=== PATIENT | male | born 1970 | race Caucasian/White ===

== ENCOUNTER 2018-09-18 21:07 | Inpatient (IN) | payer MEDICARE, OTHER ==
[~2018-09-18] VITALS: Ht 195.6 cm; Wt 189.9 kg
[2018-09-18 21:54] LABS: Basophils # (auto) 0 uL; Basophils % (auto) 0.6 % (0.0-2.0); Eosinophils # (auto) 0.1 uL; Hemoglobin 14.6 g/dL (13.5-17.5); Lymphocytes # (auto) 2.4 uL; Lymphocytes % (auto) 36.4 % (10.0-50.0); Mean Corpuscular Hemoglobin 29.5 pg (28.0-32.0); Mean Corpuscular Hgb Conc. 33.2 g/dL (32.0-36.0); Mean Corpuscular Volume 88.9 fL (80.0-100.0); Monocytes # (auto) 0.5 uL; Monocytes % (auto) 7.8 % (0.0-12.0); Neutrophils # (auto) 3.5 uL; Neutrophils % (auto) 54.2 % (37.0-80.0); Nucleated Red Blood Cells % 0.1 %; Platelet Count (auto) 251 10^3/uL (140-450); Red Blood Cells 4.95 10^6/uL (4.5-5.90); Red Cell Distribution Width 14.2 % (11.8-14.3); White Blood Cell 6.5 10^3/uL (4.4-10.8)
[2018-09-18 22:15] LABS: Albumin 3.7 g/dL (3.4-5.0); BUN/Creatinine Ratio 10.2; Calcium 8.8 mg/dL (8.5-10.1)
[2018-09-18 22:18] LABS: Bilirubin, Total 0.4 mg/dL (0.2-1.0); Total Protein 6.9 g/dL (6.4-8.2)
[2018-09-18 22:45] LABS: Urine Bacteria NONE SEEN /hpf (None Seen); Urine Blood Negative /uL (Negative); Urine Specific Gravity 1.005 (1.001-1.035); Urine WBC <1 /hpf (0 - 3)
[2018-09-19] MEDS ORDERED: MORPHINE SULFATE 4 MG/ML SYR/VIAL IV ONE
[2018-09-19] MEDS ORDERED: ONDANSETRON HCL 4 MG/2 ML VIAL IV ONE
[2018-09-19] MEDS ORDERED: cefTRIAXone 1GM/50ML D5W 50 ML IV ONE
[2018-09-19] MEDS ORDERED: VANCOMYCIN 1GM/250ML 250 ML IV ONE
[2018-09-19] MEDS ORDERED: HYDROmorphone HCL 2 MG/ML VL IV ONE (03:15)
[2018-09-19] MEDS ORDERED: ONDANSETRON HCL 4 MG/2 ML VIAL IV PRN (03:45)
[2018-09-19] MEDS ORDERED: MORPHINE SULFATE 4 MG/ML SYR/VIAL IV PRN (03:45)
[2018-09-19] MEDS ORDERED: DEXTROSE (50%) 50ML SYRG IV PRN (03:45)
[2018-09-19] MEDS ORDERED: ACETAMINOPHEN 500 MG TAB PO PRN (03:45)
[2018-09-19] MEDS ORDERED: VANCOMYCIN PER PHARMACY 0 MG IV SCH (04:00)
[2018-09-19 05:33] LABS: Basophils # (auto) 0 uL; Basophils % (auto) 0.6 % (0.0-2.0); Eosinophils # (auto) 0.1 uL; Eosinophils % (auto) 1.9 % (0.0-7.0); Hematocrit 42.3 % (41.0-53.0); Hemoglobin 14.5 g/dL (13.5-17.5); Lymphocytes # (auto) 2.1 uL; Lymphocytes % (auto) 38.4 % (10.0-50.0); Mean Corpuscular Hemoglobin 30.2 pg (28.0-32.0); Mean Corpuscular Hgb Conc. 34.3 g/dL (32.0-36.0); Mean Corpuscular Volume 88.2 fL (80.0-100.0); Monocytes # (auto) 0.5 uL; Monocytes % (auto) 9.5 % (0.0-12.0); Neutrophils # (auto) 2.7 uL; Neutrophils % (auto) 49.6 % (37.0-80.0); Nucleated Red Blood Cells % 0.2 %; Platelet Count (auto) 224 10^3/uL (140-450); Red Blood Cells 4.79 10^6/uL (4.5-5.90); Red Cell Distribution Width 14.4 % (11.8-14.3); White Blood Cell 5.5 10^3/uL (4.4-10.8)
[2018-09-19 05:50] LABS: BUN/Creatinine Ratio 12.8; Calcium 8.7 mg/dL (8.5-10.1); Potassium 4.1 mmol/L (3.5-5.1)
[2018-09-19] MEDS: PIPERACILLIN-TAZOB 3.375GM 100 ML IV SCH ×3 (05:59→18:11)
[2018-09-19 06:00] VITALS: BP 124/87
[2018-09-19] MEDS: InsuLIN REG 1unit/0.01ml Soln (100units/ml) SC SCH ×4 (06:02→22:44)
[2018-09-19] MEDS: ACCU-CHEK COMFORT CURVE STRIP VI SCH ×4 (06:02→22:44)
[2018-09-19] MEDS: SODIUM CHLORIDE 0.9% 1,000 ML IV SCH ×2 (06:03→17:05)
[2018-09-19] MEDS: MORPHINE SULFATE 10 MG/ML INJ 1ML SDV IV PRN ×3 (07:05→15:19)
[2018-09-19 08:59] VITALS: BP 118/73
[2018-09-19] MEDS: VANCOMYCIN 1GM/250ML 250 ML IV SCH ×3 (09:04→22:09)
[2018-09-19 12:59] VITALS: BP 120/68
[2018-09-19 13:53] LABS: INR 0.98 (0.9-1.15); Partial Thromboplastin Time 28.4 sec (23.78-33.04); Prothrombin Time 10.5 sec (9.27-12.13)
[2018-09-19 17:03] VITALS: BP 107/63
[2018-09-19 18:36] LABS: INR 0.97 (0.9-1.15); Prothrombin Time 10.4 sec (9.27-12.13)
[2018-09-19] MEDS: HYDROmorphone HCL 2 MG/ML VL IV PRN ×2 (19:01→23:11)
[2018-09-19 19:09] LABS: Alcohol, Urine < 3.0 mg/dL (0-5); Amphetamine Screen, Urine NEGATIVE (NEGATIVE); Barbiturate Scree,Urine NEGATIVE (NEGATIVE); Benzodiazephine Screen, Urine NEGATIVE (NEGATIVE); Cannabinoid Screen, Urine NEGATIVE (NEGATIVE); Cocaine Screen, Urine NEGATIVE (NEGATIVE); Opiate Scree,Urine POSITIVE (NEGATIVE); Phencyclidine Screen, Urine NEGATIVE (NEGATIVE)
[2018-09-19 21:30] VITALS: BP 117/60
[2018-09-19] MEDS: clonazePAM 0.5 MG TAB PO SCH (22:05)
[2018-09-20] MEDS: PIPERACILLIN-TAZOB 3.375GM 100 ML IV SCH ×2 (00:07→05:31)
[2018-09-20 01:47] LABS: Basophils # (auto) 0 uL; Basophils % (auto) 0.9 % (0.0-2.0); Eosinophils # (auto) 0.1 uL; Eosinophils % (auto) 2.3 % (0.0-7.0); Hematocrit 41.5 % (41.0-53.0); Hemoglobin 13.8 g/dL (13.5-17.5); Lymphocytes # (auto) 1.2 uL; Mean Corpuscular Hemoglobin 29.1 pg (28.0-32.0); Mean Corpuscular Hgb Conc. 33.2 g/dL (32.0-36.0); Mean Corpuscular Volume 87.5 fL (80.0-100.0); Monocytes # (auto) 0.6 uL; Monocytes % (auto) 11.9 % (0.0-12.0); Neutrophils # (auto) 2.8 uL; Neutrophils % (auto) 58.9 % (37.0-80.0); Platelet Count (auto) 182 10^3/uL (140-450); Red Blood Cells 4.74 10^6/uL (4.5-5.90); Red Cell Distribution Width 14.5 % (11.8-14.3); White Blood Cell 4.7 10^3/uL (4.4-10.8)
[2018-09-20 02:06] LABS: BUN/Creatinine Ratio 11.9; Calcium 8.7 mg/dL (8.5-10.1); Magnesium 2.1 mg/dL (1.6-2.6); Potassium 4.3 mmol/L (3.5-5.1)
[2018-09-20] MEDS: VANCOMYCIN 1GM/250ML 250 ML IV SCH (03:00)
[2018-09-20] MEDS: HYDROmorphone HCL 2 MG/ML VL IV PRN ×6 (03:15→23:56)
[2018-09-20 05:00] VITALS: BP 119/78
[2018-09-20] MEDS: clonazePAM 0.5 MG TAB PO SCH ×3 (05:31→21:28)
[2018-09-20] MEDS: SODIUM CHLORIDE 0.9% 1,000 ML IV SCH (06:25)
[2018-09-20] MEDS: ACCU-CHEK COMFORT CURVE STRIP VI SCH ×4 (06:31→21:28)
[2018-09-20] MEDS: InsuLIN REG 1unit/0.01ml Soln (100units/ml) SC SCH ×4 (06:32→21:30)
[2018-09-20] MEDS ORDERED: fentaNYL CITRATE 100 MCG/2 ML VL ONE (08:46)
[2018-09-20] MEDS ORDERED: MIDAZOLAM HCL 1MG/1ML-2 ML VIAL ONE (08:46)
[2018-09-20 09:00] VITALS: BP 102/65
[2018-09-20] MEDS ORDERED: KETOROLAC TROMETH 30 MG/ML 1ML VIAL IV ONE (09:15)
[2018-09-20] MEDS ORDERED: ONDANSETRON HCL 4 MG/2 ML VIAL IV ONE (09:15)
[2018-09-20] MEDS ORDERED: ACCU-CHEK COMFORT CURVE STRIP VI ONE (09:15)
[2018-09-20] MEDS ORDERED: ePHEDrine SULFATE 50 MG/ML AMP IV PRN (09:15)
[2018-09-20] MEDS ORDERED: MORPHINE SULFATE 4 MG/ML SYR/VIAL IV PRN (09:15)
[2018-09-20] MEDS ORDERED: HYDROmorphone HCL 2 MG/ML VL IV PRN (09:15)
[2018-09-20] MEDS ORDERED: MIDAZOLAM HCL 1MG/1ML-2 ML VIAL IV PRN (09:15)
[2018-09-20] MEDS ORDERED: LABETALOL HCL 5 MG/ML 4ML SYRINGE IV PRN (09:15)
[2018-09-20] MEDS ORDERED: PROPOFOL 10 MG/ML 20 ML IV ONE (09:21)
[2018-09-20] MEDS ORDERED: MORPHINE SULFATE 4 MG/ML SYR/VIAL IV ONE (10:00)
[2018-09-20] MEDS ORDERED: VANCOMYCIN 1,500 MG in D5W 5% 250 ML IV SCH (12:00)
[2018-09-20 13:00] VITALS: BP 136/87
[2018-09-20] MEDS ORDERED: SULFAMETHOX W/TRIMETH(800/160MG) DS TAB PO ONE (13:30)
[2018-09-20] MEDS ORDERED: PIPERACILLIN-TAZOB 3.375GM 100 ML IV SCH (14:00)
[2018-09-20 14:52] VITALS: BP 105/62
[2018-09-20 17:00] VITALS: BP 102/77
[2018-09-20 22:00] VITALS: BP 107/58
[2018-09-21] MEDS: SODIUM CHLORIDE 0.9% 1,000 ML IV SCH ×3 (00:04→22:25)
[2018-09-21] MEDS: HYDROmorphone HCL 2 MG/ML VL IV PRN ×5 (04:11→22:11)
[2018-09-21] MEDS: clonazePAM 0.5 MG TAB PO SCH ×3 (05:31→21:15)
[2018-09-21 06:00] VITALS: BP 103/43
[2018-09-21] MEDS: ACCU-CHEK COMFORT CURVE STRIP VI SCH ×4 (06:01→21:15)
[2018-09-21] MEDS: InsuLIN REG 1unit/0.01ml Soln (100units/ml) SC SCH ×4 (06:02→21:24)
[2018-09-21 07:02] LABS: Basophils # (auto) 0 uL; Basophils % (auto) 0.6 % (0.0-2.0); Eosinophils # (auto) 0.1 uL; Eosinophils % (auto) 2.4 % (0.0-7.0); Hematocrit 42.5 % (41.0-53.0); Hemoglobin 14.1 g/dL (13.5-17.5); Lymphocytes # (auto) 1.1 uL; Lymphocytes % (auto) 26.3 % (10.0-50.0); Mean Corpuscular Hemoglobin 29.6 pg (28.0-32.0); Mean Corpuscular Hgb Conc. 33.2 g/dL (32.0-36.0); Mean Corpuscular Volume 89.2 fL (80.0-100.0); Monocytes # (auto) 0.5 uL; Monocytes % (auto) 12.3 % (0.0-12.0); Neutrophils # (auto) 2.5 uL; Neutrophils % (auto) 58.4 % (37.0-80.0); Nucleated Red Blood Cells % 0.1 %; Platelet Count (auto) 179 10^3/uL (140-450); Red Blood Cells 4.76 10^6/uL (4.5-5.90); Red Cell Distribution Width 14.2 % (11.8-14.3); White Blood Cell 4.2 10^3/uL (4.4-10.8)
[2018-09-21 07:14] LABS: Albumin 3.5 g/dL (3.4-5.0); Calcium 8.7 mg/dL (8.5-10.1); Potassium 4.1 mmol/L (3.5-5.1)
[2018-09-21 07:15] LABS: BUN/Creatinine Ratio 10.3; Bilirubin, Total 0.5 mg/dL (0.2-1.0)
[2018-09-21 07:16] LABS: Total Protein 6.9 g/dL (6.4-8.2)
[2018-09-21 08:25] VITALS: BP 105/62
[2018-09-21 12:30] VITALS: BP 121/66
[2018-09-21 17:15] VITALS: BP 98/59
[2018-09-21 22:00] VITALS: BP 111/69
[2018-09-22] MEDS: HYDROmorphone HCL 2 MG/ML VL IV PRN ×2 (01:54→06:04)
[2018-09-22 05:00] VITALS: BP 109/61
[2018-09-22] MEDS: clonazePAM 0.5 MG TAB PO SCH (06:06)
[2018-09-22] MEDS: ACCU-CHEK COMFORT CURVE STRIP VI SCH (06:08)
[2018-09-22] MEDS: InsuLIN REG 1unit/0.01ml Soln (100units/ml) SC SCH (06:09)
[2018-09-22 08:00] VITALS: BP 120/63
[2018-09-22 08:46] VITALS: BP 120/63
== END 2018-09-22 10:58 | disposition home health service (06) | DRG 854 ==
LOC: ER 21:07 → OVERFLOW 09-19 03:43 → WEST WING 09-19 05:40
PROVIDERS: ADMIT Nurse Practitioner Family; ATTEND Internal Medicine
PROC: 0KBJ0ZZ Excision of Left Thorax Muscle, Open Approach (ICD-10-PCS; principal; 2018-09-20 09:14)
DX: A41.9 Sepsis, unspecified organism (principal); Z68.42 Body mass index [BMI] 45.0-49.9, adult; L03.311 Cellulitis of abdominal wall; E66.01 Morbid (severe) obesity due to excess calories; S21.002A Unspecified open wound of left breast, initial encounter; X58.XXXA Exposure to other specified factors, initial encounter; Z79.4 Long term (current) use of insulin; Z83.3 Family history of diabetes mellitus; Z91.14 Patient's other noncompliance with medication regimen; Z71.3 Dietary counseling and surveillance; Y93.89 Activity, other specified; Y92.89 Other specified places as the place of occurrence of the external cause; Y99.8 Other external cause status; E11.65 Type 2 diabetes mellitus with hyperglycemia
CPT/HCPCS: 36415; 80048; 80053; 80202; 80307; 81001; 82962; 83036; 83735; 85025; 85610; 85730; 87040; 87070; 96365; 96368; 96375; G0378; J0696; J1815; J2250; J2405; J2543; J2704; J7060

== ENCOUNTER 2019-07-27 11:35 | Inpatient (IN) | payer OTHER ==
[~2019-07-27] VITALS: Ht 193 cm; Wt 191.4 kg
[2019-07-27 12:28] LABS: Basophils # (auto) 0.1 uL; Basophils % (auto) 0.8 % (0.0-2.0); Eosinophils # (auto) 0.1 uL; Eosinophils % (auto) 1.6 % (0.0-7.0); Hematocrit 40.6 % (41.0-53.0); Hemoglobin 13.6 g/dL (13.5-17.5); Lymphocytes # (auto) 1.8 uL; Lymphocytes % (auto) 25.1 % (10.0-50.0); Mean Corpuscular Hemoglobin 29.2 pg (28.0-32.0); Mean Corpuscular Hgb Conc. 33.5 g/dL (32.0-36.0); Mean Corpuscular Volume 87.2 fL (80.0-100.0); Monocytes # (auto) 0.8 uL; Monocytes % (auto) 11.1 % (0.0-12.0); Neutrophils # (auto) 4.4 uL; Neutrophils % (auto) 61.4 % (37.0-80.0); Nucleated Red Blood Cells % 0.1 %; Platelet Count (auto) 202 10^3/uL (140-450); Red Blood Cells 4.65 10^6/uL (4.5-5.90); Red Cell Distribution Width 15.1 % (11.8-14.3); White Blood Cell 7.2 10^3/uL (4.4-10.8)
[2019-07-27 12:39] LABS: INR < 0.93 (0.9-1.15); Partial Thromboplastin Time 25.9 sec (23.64-32.05)
[2019-07-27 12:49] LABS: Lactic Acid w/Reflex 2.6 mmol/L (0.4-2.0)
[2019-07-27 12:50] LABS: Albumin 3.5 g/dL (3.4-5.0); Calcium 8.6 mg/dL (8.5-10.1)
[2019-07-27 12:53] LABS: BUN/Creatinine Ratio 15.9; Bilirubin, Total 0.4 mg/dL (0.2-1.0); Total Protein 7.3 g/dL (6.4-8.2)
[2019-07-27] MEDS ORDERED: cefTRIAXone 1GM/50ML D5W 50 ML IV ONE (14:45)
[2019-07-27] MEDS ORDERED: LORazepam 2MG/ML-1ML VIAL IV ONE (15:15)
[2019-07-27] MEDS ORDERED: HYDROcodone-ACET 10/325MG TAB PO ONE (15:15)
[2019-07-27] MEDS ORDERED: IOHEXOL 300 MG/ML 100ML BOTTLE IJ ONE (18:08)
[2019-07-27] MEDS ORDERED: ACETAMINOPHEN 500 MG TAB PO PRN (19:30)
[2019-07-27] MEDS ORDERED: DEXTROSE (50%) 50ML SYRG IV PRN (19:30)
[2019-07-27] MEDS ORDERED: HYDROcodone-ACET 5/325MG TAB PO PRN (19:30)
[2019-07-27] MEDS ORDERED: MORPHINE SULF INJ 2 MG/ML SYRINGE 1ML IV PRN (19:30)
[2019-07-27] MEDS ORDERED: NITROGLYCERIN 0.4 MG SL TAB SL PRN (19:30)
[2019-07-27] MEDS ORDERED: LACTULOSE 20Gm/30ML SOLN PO PRN (19:30)
[2019-07-27] MEDS ORDERED: TEMAZEPAM 15 MG CAP PO PRN (19:30)
[2019-07-27] MEDS ORDERED: LEVOFLOXACIN 500MG 100 ML IV ONE (19:30)
[2019-07-27] MEDS: SODIUM CHLORIDE 0.9% 1,000 ML IV SCH (20:16)
[2019-07-27] MEDS: MORPHINE SULFATE 4 MG/ML SYR/VIAL IV PRN (20:17)
[2019-07-27] MEDS: ACCU-CHEK COMFORT CURVE STRIP VI SCH (20:23)
[2019-07-27] MEDS: InsuLIN REG 1unit/0.01ml Soln (100units/ml) SC SCH (20:23)
[2019-07-27] MEDS: PROMETHAZINE HCL 25 MG/ML 1ML IV PRN (20:59)
[2019-07-27 21:30] VITALS: BP 140/71
--- NOTE | 2019-07-27 21:30 | NUR ---
MED REC UPDATE: PATIENT STATES HE DOES NOT KNOW WHAT MEDICATIONS HE CURRENTLY TAKES BUT HAS A LIST AT HOME AND IN HIS CAR. PATIENT STATED HE WILL HAVE A FAMILY MEMBER BRING STAFF A LIST OF HIS HOME MEDICATIONS TO ENTER INTO THE SYSTEM.
--- NOTE | 2019-07-27 21:30 | NUR ---
Telemetry admit from ARABELLA CRUZ,JESSICA VALDEZ admitted to Telemetry unit. Patient oriented to Ana Langford RN primary RN, unit, room, bed, and unit policies regarding patient care and visiting hours. Patient now on continuous telemetry monitoring, tele box # [id number] and telemetry reading on arrival to unit is NSR. Patient placed on bedside oxygen, weighed by bedscale and encouraged to call if they need something. All questions and concerns addressed, patient verbalized understanding. Note: alert and oriented x 4, clear speech, follows direction. On room air with even and unlabored respirations, no s/s of distress or SOB. Noted dried callous scab to left lateral foot, noted redness and swelling to bilateral lower extremities. Bed low locked position with side rails up x 2 and call light within reach. Instructed on POC and to call for assistance PRN, will continue care.
--- NOTE | 2019-07-27 22:00 | NUR ---
Wound photo taken
[2019-07-27] MEDS: CLINDAMYCIN 600MG IV 50 ML IV SCH (22:37)
[2019-07-28] MEDS ORDERED: INFLUENZA QUAD 2019-2020 0.5ml SYRG IM ONE (00:15)
[2019-07-28] MEDS ORDERED: PNEUMOCOCCAL VACC POLYS 25 MCG/0.5 ML VIAL IM ONE (00:15)
[2019-07-28] MEDS: MORPHINE SULFATE 4 MG/ML SYR/VIAL IV PRN ×5 (00:20→20:11)
[2019-07-28] MEDS: ACCU-CHEK COMFORT CURVE STRIP VI SCH ×6 (00:43→20:42)
[2019-07-28] MEDS: InsuLIN REG 1unit/0.01ml Soln (100units/ml) SC SCH ×6 (00:44→20:42)
[2019-07-28] MEDS: PROMETHAZINE HCL 25 MG/ML 1ML IV PRN ×4 (04:23→20:11)
[2019-07-28 05:00] VITALS: BP 123/80
[2019-07-28] MEDS: CLINDAMYCIN 600MG IV 50 ML IV SCH (05:55)
[2019-07-28] MEDS: SODIUM CHLORIDE 0.9% 1,000 ML IV SCH (05:55)
--- NOTE | 2019-07-28 06:58 | NUR ---
Closing Note patient resting in bed with even and unlabored respirations, no s/s of distress. Bed low locked position with side rails up x 2 and call light within reach. Endorsed care to day shift RN.
--- NOTE | 2019-07-28 07:30 | NUR ---
Opening Shift Note Assumed care of patient, awake and alert. No S/S of distress/SOB. Pain reported. discussed pain management options with patient. Instructed on POC and to call for assist PRN, will continue to monitor for changes Q1hr and PRN.
[2019-07-28 08:00] VITALS: BP 139/78
[2019-07-28 09:00] VITALS: BP 139/78
[2019-07-28] MEDS ORDERED: ENOXAPARIN SOD 40 MG/0.4 ML SYRINGE SC SCH (10:00)
[2019-07-28] MEDS: PANTOPRAZOLE 40 MG TAB PO SCH (10:16)
[2019-07-28] MEDS: LEVOFLOXACIN 500MG 100 ML IV SCH (10:16)
[2019-07-28] MEDS ORDERED: OXYCODONE HCL 5MG TAB PO PRN (11:15)
[2019-07-28] MEDS ORDERED: VANCOMYCIN PER PHARMACY 0 MG IV SCH (11:15)
[2019-07-28 13:00] VITALS: BP 155/92
[2019-07-28] MEDS: VANCOMYCIN 1,500 MG in D5W 5% 250 ML IV SCH ×2 (14:24→20:12)
[2019-07-28 17:00] VITALS: BP 133/77
[2019-07-28] MEDS: BUMETANIDE 1mg/4ml VIAL (0.25mg/ml) IV SCH (17:54)
--- NOTE | 2019-07-28 19:30 | NUR ---
Opening Shift Note Assumed care of patient. Patient is awake and alert. No S/S of distress/SOB. Instructed on POC and to call for assist PRN, will continue to monitor for changes. Bed locked in lowest position and bed rails up x2. Call light within reach.
[2019-07-28] MEDS: ENOXAPARIN SOD 40 MG/0.4 ML SYRINGE SC SCH (21:07)
[2019-07-28] MEDS: POTASSIUM CHL 10 Meq TABLET PO SCH (21:07)
[2019-07-28] MEDS ORDERED: VANCOMYCIN 1GM/250ML 250 ML IV SCH (22:00)
[2019-07-29] MEDS: PROMETHAZINE HCL 25 MG/ML 1ML IV PRN ×3 (00:14→14:37)
[2019-07-29] MEDS: MORPHINE SULFATE 4 MG/ML SYR/VIAL IV PRN ×4 (00:14→14:36)
[2019-07-29] MEDS: ACCU-CHEK COMFORT CURVE STRIP VI SCH ×4 (00:29→12:11)
[2019-07-29] MEDS: InsuLIN REG 1unit/0.01ml Soln (100units/ml) SC SCH ×4 (00:29→12:12)
[2019-07-29 00:57] VITALS: BP 142/84
[2019-07-29] MEDS: VANCOMYCIN 1,500 MG in D5W 5% 250 ML IV SCH ×2 (04:33→12:11)
--- NOTE | 2019-07-29 05:00 | NUR ---
Educated patient on the risk of recurrent use of an opioid analgesic. Patient verbalized understanding.
[2019-07-29 05:40] VITALS: BP 101/80
[2019-07-29 05:58] LABS: BUN/Creatinine Ratio 12.9; Calcium 8.8 mg/dL (8.5-10.1)
[2019-07-29] MEDS: BUMETANIDE 1mg/4ml VIAL (0.25mg/ml) IV SCH (06:46)
--- NOTE | 2019-07-29 07:30 | NUR ---
Opening Shift Note Assumed care of patient, awake and alert. No S/S of distress/SOB. Pain reported. Pain management options discussed with patient. Instructed on POC and to call for assist PRN, will continue to monitor for changes Q1hr and PRN.
[2019-07-29 08:00] VITALS: BP 111/73
[2019-07-29] MEDS: LEVOFLOXACIN 500MG 100 ML IV SCH (10:14)
[2019-07-29] MEDS: POTASSIUM CHL 10 Meq TABLET PO SCH (10:14)
[2019-07-29] MEDS: PANTOPRAZOLE 40 MG TAB PO SCH (10:14)
[2019-07-29] MEDS: ENOXAPARIN SOD 40 MG/0.4 ML SYRINGE SC SCH (10:14)
--- NOTE | 2019-07-29 12:05 | NUR ---
dressing applied to the patients left foot. there is a cracked callus to the left foot. it was rinsed with sterile NS and covered with 4x4 gauze. the gauze was held in place by a gauze wrap.
[2019-07-29 13:13] VITALS: BP 127/84
[2019-07-29 14:09] VITALS: BP 127/84
--- NOTE | 2019-07-29 15:15 | NUR ---
Discharge instructions given as ordered. Encourage to follow up with PMD as instructed. All questions and concerns addressed. Patient verbalized understanding. Needed vaccines given. IV removed with catheter intact, pressure dressing applied. Telemetry unit returned to ICU. Patient ambulated to vehicle with all personal belongings. No distress noted at time of departure.
== END 2019-07-29 15:15 | disposition home or self-care (01) | DRG 603 ==
LOC: ER 11:35 → TELE 11:36 → TELE-WESTW 21:47
PROVIDERS: ADMIT Internal Medicine; ATTEND Hospitalist
DX: L03.116 Cellulitis of left lower limb (principal); Z68.43 Body mass index [BMI] 50.0-59.9, adult; L97.529 Non-pressure chronic ulcer of other part of left foot with unspecified severity; E66.01 Morbid (severe) obesity due to excess calories; Z28.21 Immunization not carried out because of patient refusal; E78.5 Hyperlipidemia, unspecified; F17.210 Nicotine dependence, cigarettes, uncomplicated; I10 Essential (primary) hypertension; Z83.3 Family history of diabetes mellitus; E11.65 Type 2 diabetes mellitus with hyperglycemia
CPT/HCPCS: 36415; 73700; 73701; 80048; 80053; 80202; 82962; 83036; 83605; 85025; 85610; 85652; 85730; 87040; 93971; 96365; 96367; 96375; G0378; J0696; J1815; J1956; J3490; J7060